=== PATIENT | female | born 1950 | race Caucasian/White ===

== ENCOUNTER 2017-08-28 20:09 | Inpatient (IN) | END 2017-09-05 18:30 | disposition home or self-care (01) | DRG 293 ==

== ENCOUNTER 2017-09-13 01:54 | Inpatient (IN) | END 2017-09-16 16:50 | disposition home or self-care (01) | DRG 308 ==

== ENCOUNTER 2017-10-06 12:24 | Inpatient (IN) | END 2017-10-10 16:30 | disposition home or self-care (01) | DRG 291 ==